=== PATIENT | female | born 1970 | race Two or more races ===

== ENCOUNTER 2017-04-11 17:32 | Emergency (ER) | payer OTHER ==
[~2017-04-11] VITALS: Ht 144.8 cm; Wt 54.9 kg
[2017-04-11 19:22] VITALS: BP 156/82
== END 2017-04-11 20:19 | disposition home or self-care (01) ==
LOC: ER 17:43
DX: S00.83XA Contusion of other part of head, initial encounter (principal); S40.012A Contusion of left shoulder, initial encounter; W20.8XXA Other cause of strike by thrown, projected or falling object, initial encounter; Y93.89 Activity, other specified; Y99.8 Other external cause status; Y92.69 Other specified industrial and construction area as the place of occurrence of the external cause
CPT/HCPCS: 70450; 73030; 99284; J7030

== ENCOUNTER 2018-07-29 19:16 | Emergency (ER) | payer MEDICAID, OTHER ==
[~2018-07-29] VITALS: Ht 144.8 cm; Wt 55.3 kg
[2018-07-29 19:27] VITALS: BP 161/78
== END 2018-07-29 21:37 | disposition home or self-care (01) ==
LOC: ER 19:16
DX: M62.830 Muscle spasm of back (principal); V43.52XA Car driver injured in collision with other type car in traffic accident, initial encounter; Y93.89 Activity, other specified; Y99.8 Other external cause status; Y92.410 Unspecified street and highway as the place of occurrence of the external cause
CPT/HCPCS: 71046; 72040